=== PATIENT | female | born 1955 | race African-American/Black ===

== ENCOUNTER → 2019-02-03 | Day surgery (SDC) | payer OTHER ==
--- NOTE | 2019-02-04 09:48 | OP ---
DATE OF OPERATION: 02/03/2019 PREOPERATIVE DIAGNOSIS: Abnormal left mammography. POSTOPERATIVE DIAGNOSIS: Abnormal left mammography. PROCEDURE: Left breast stereotactic needle biopsy with clips. SURGEON: Arlene Burciaga MD ANESTHESIA: Local. COMPLICATIONS: None. This is a sterile procedure. INDICATION: Patient presented with a screening mammography that noted a density in the lateral posterior left breast which has been attempted to be biopsied by the radiologist at [facility] with the clip in a different location. There was nothing on ultrasound. Therefore, my recommendation was trying to biopsy this again. The procedure of a left stereotactic needle biopsy with clip was discussed and all her questions answered. PROCEDURE IN DETAIL: The patient was brought to [facility] in [facility], laid prone on the Lorad table. Using the lateral approach, the density in the lateral posterior left breast was identified. A stereo pair was obtained. A target was chosen. There was a positive stroke margin. Using Betadine, 1% lidocaine, a 9-gauge Suros device was used to take several cores from this density. Cores were sent to pathology in formalin. A clip was deployed in the area. Hemostasis was assured with direct pressure. Steri-Strips were used to close the incision. She tolerated the procedure well and left the breast imaging center in good condition. ARLENE BURCIAGA M.D. [id number]
--- NOTE | 2019-02-05 10:37 | PATH ---
Surgical Pathology Report Patient Name: WHITLEY BRADY [facility]. Rec. #: [id number] /Age/Gender: 1955 (Age: 63) / F Account: [id number] Location: [facility] Taken: 02/03/2019 Received: 02/03/2019 Reported: 02/05/2019 Physicians: Arlene Zavala M.D. Specimen(s) Received LEFT BREAST SPECIMEN WITH DENSITY STEREOTACTIC BIOPSY Clinical History Non-palpable lesion. 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 Electronically Signed Natalie Sorenson M.D. Gross Description Received in formalin, labeled "left breast specimen with density" are multiple cores of light cha, yellow-cha, tissue, admixed with blood clot having an aggregate of 2.8 x 2.6 x 0.2 cm. Entirely submitted in two cassettes. Time to formalin fixation: 5 minutes Total formalin fixation, time: Approximately 6 hours
== END | disposition home or self-care (01) ==
LOC: FMAMMOTONE 12:12
PROVIDERS: ATTEND Surgery
PROC: 0HBU3ZX Excision of Left Breast, Percutaneous Approach, Diagnostic (ICD-10-PCS; principal; 2019-02-03)
DX: N60.92 Unspecified benign mammary dysplasia of left breast (principal); R92.8 Other abnormal and inconclusive findings on diagnostic imaging of breast
CPT/HCPCS: 19081; 88305-TC

== ENCOUNTER 2019-03-16 08:49 | Day surgery (SDC) | payer OTHER ==
[2019-03-15 12:15] VITALS: BMI 28.8
[2019-03-16] MEDS ORDERED: LIDOCAINE HCL 1%, 10 MG/ML (20ML VIAL) ONE (09:34)
[2019-03-16] MEDS ORDERED: MIDAZOLAM HCL 2 MG/2 ML SINGLE DOSE VIAL ONE (12:19)
[2019-03-16] MEDS ORDERED: PROPOFOL 20 ML ONE ×2 (12:19→12:53)
[2019-03-16] MEDS ORDERED: LIDOCAINE HCL/PF 2% SDV 5ML VIAL ONE (12:27)
[2019-03-16] MEDS ORDERED: SODIUM CHLORIDE 0.9% P/F 10 ML VIAL IJ ONE ×2 (12:32→12:46)
[2019-03-16] MEDS ORDERED: ceFAZolin SODIUM 1 GM VIAL ONE (12:32)
[2019-03-16] MEDS ORDERED: ceFAZolin SODIUM 1 GM VIAL IVPB ONE (12:35)
[2019-03-16] MEDS ORDERED: KETOROLAC TROMETHAMINE 30 MG/1 ML VIAL ONE (12:38)
[2019-03-16] MEDS ORDERED: ONDANSETRON 4 MG/2 ML VIAL IVPUSH PRN (13:22)
[2019-03-16] MEDS ORDERED: oxyCODONE HCL 5 MG TABLET PO PRN (13:22)
[2019-03-16] MEDS ORDERED: PROMETHAZINE HCL 25 MG/1 ML VIAL IVPUSH PRN (13:22)
[2019-03-16] MEDS ORDERED: LACTATED RINGERS SOLUTION 1,000 ML IV SCH (13:30)
--- NOTE | 2019-03-16 13:54 | OP ---
DATE OF OPERATION: 03/16/2019 PREOPERATIVE DIAGNOSIS: Left breast atypical duct hyperplasia. POSTOPERATIVE DIAGNOSIS: Left breast atypical duct hyperplasia. PROCEDURE: Left breast wire localized lumpectomy. ANESTHESIA: IV local with sedation. ESTIMATED BLOOD LOSS: Minimal. COMPLICATIONS: None. This was a sterile procedure. INDICATION FOR PROCEDURE: Patient presented with a screening mammography that noted calcifications in the upper outer left breast. A needle biopsy showed atypical duct hyperplasia. My recommendation was an excision of the area to make sure was no further upgrade in the lesion. The procedure was discussed with all of the questions answered. PROCEDURE IN DETAIL: Patient was brought to [facility] in [place], taken to breast imaging where , the credit risk modeler placed a wire into the superolateral O-shaped clip in the upper outer left breast. She was then brought to the operating room and after IV sedation, IV antibiotics, the left breast was prepped and draped in the usual sterile fashion. The area in the upper outer left breast was anesthetized with 1% lidocaine without epinephrine. An incision was made directly in front of the wire, and the wire was used as a guide to get down to the area. Tissue was excised en bloc. Tagged with a long stitch lateral, short stitch superior. Sent for a specimen radiograph. The specimen radiograph showed both the clips, 1 from a prior benign biopsy and the more recent biopsy as well as the wire to be intact within the specimen. This was then sent to Pathology for permanent section. Once hemostasis was assured, the parenchyma was approximated with interrupted 2-0 Vicryl, skin approximated with interrupted 3-0 Vicryl, running 4-0 Biosyn. A sterile dressing of a Tegaderm, 4 x 4 was applied. She tolerated the procedure well, was taken to recovery in good condition. ALAN BURCIAGA M.D. [id number]
[2019-03-16 13:55] VITALS: TEMP 97.8
[2019-03-16 15:17] VITALS: BP 141/76; PULSE 86
--- NOTE | 2019-03-19 15:10 | PATH ---
Surgical Pathology Report Patient Name: WHITLEY BRADY [facility]. Rec. #: [id number] /Age/Gender: 1955 (Age: 63) / F Account: [id number] Location: [facility] [place] [facility] Taken: 03/16/2019 Received: 03/16/2019 Reported: 03/19/2019 Physicians: Arlene Zavala M.D. Specimen(s) Received BREAST MASS LEFT Clinical History Left breast atypia Final Diagnosis BREAST, LEFT, LUMPECTOMY: ATYPICAL DUCTAL HYPERPLASIA WITH HYPERSECRETORY FEATURES AND FLAT EPITHELIAL ATYPIA. Electronically Signed Jessica Mcgrath M.D. Gross Description Received fresh on an AccuGrid, labeled "left breast lumpectomy," is a 5.2 x 4.0 x 1.5 cm. cha-yellow, irregular, portion of fibroadipose tissue with a needle localization wire present. There is a short suture marking the superior aspect and a long suture marking the lateral aspect, per the surgeon. There is no skin or nipple present. The specimen is inked as follows: Superior blue; inferior green; anterior and lateral red; medial yellow; deep black. The specimen is serially sectioned from anterior to deep. Sectioning reveals multifocal white fibrous tissue with a focus of hemorrhage containing a ogden metallic biopsy clip. No definitive mass is identified. The specimen is entirely and sequentially submitted in 9 cassettes with the anterior margin in cassette 1, the deep margin in cassette 9 and the section with biopsy clip in cassette 2. Total formalin fixation time: Approximately 28 hours 03/17/201903/17/2019
== END 2019-03-16 15:17 | disposition home or self-care (01) ==
LOC: JASU-SURG 08:49
PROVIDERS: ATTEND Surgery
PROC: 0HBU0ZX Excision of Left Breast, Open Approach, Diagnostic (ICD-10-PCS; principal; 2019-03-16 12:00)
DX: N60.92 Unspecified benign mammary dysplasia of left breast (principal); N64.89 Other specified disorders of breast
CPT/HCPCS: 19281; 82962; 88307-TC; 94760